=== PATIENT | male | born 1950 | race Caucasian/White ===

== ENCOUNTER 2017-04-27 13:16 | Emergency (ER) | payer MEDICARE, BC ==
[~2017-04-27] VITALS: Ht 165.1 cm; Wt 135.2 kg
--- NOTE | ~2017-04-27 | EKG ---
PATIENT: JOHN CHILD UNIT #: [id number] Ventricular Rate: 87 BPM Atrial Rate: 87 BPM P-R Interval: 222 ms QRS Duration: 98 ms Q-T Interval: 360 ms QTC Calculation(Bezet): 433 ms P [place]: 35 degrees Calculated R [place]: -21 degrees Calculated T [place]: 33 degrees Diagnosis Line: Sinus rhythm with 1st degree A-V block Diagnosis Line: Low voltage QRS Diagnosis Line: Borderline ECG Diagnosis Line: When compared with ECG of 13-JUL-2013 10:39, Diagnosis Line: WI interval has increased Diagnosis Line: Confirmed by GONZALO TORRES MD ([id number]) on 04/28/2017 Diagnosis Line: 10:22:27 PM INTERPRETING MD: MELISSA AGUILERA
--- NOTE | ~2017-04-27 | CT71 ---
[facility] A Service [facility] RADIOLOGY TEXT RESULTS PATIENT: JOHN CHILD LOCATION: [facility]ED[facility] : 54 UNIT #: [id number] AGE: [address]: ARIELLE RODRIGUEZ MD SEX: M ORDER DR: [id number] [facility] [address] [place], [place] [address] [id number] MR#: [id number] #: [id number] NAME: JOHN CHILD. : 1950 SEX: M STUDY DATE/TIME: 04/27/2017 15:16 UNIT: CEDOF ROOM: [id number] STUDY DESCRIPTION: CT Head Wo Contrast Attending Physician: Arielle Rodriguez M.D. Ordering Physician: Ed Doctor [id number] [facility] Primary Care Physician: Luis Hermosillo M.D. MEDICAL IMAGING REPORT This report is preliminary unless electronic signature is present EXAM CT head without contrast, 04/27/17 COMPARISON STUDIES None. HISTORY Vertigo for a week. Worse with movement. TECHNIQUE This CT exam was performed with one or more of the following radiation dose reduction techniques: automatic exposure control, adjustment of mA and/or kV according to patient size, and iterative reconstruction. FINDINGS CT of the head was obtained without contrast in the axial plane as per the protocol. Motion artifact limits evaluation. No acute intracranial hemorrhage, hydrocephalous or midline shift. Paranasal sinuses, mastoid air cells are unremarkable. Status post bilateral cataract surgery. Orbits and the ocular structures do not demonstrate any significant abnormality. IMPRESSION No demonstrable acute intracranial abnormality. Dictated by... Johnathon Perdomo M.D. THIS IS AN ELECTRONICALLY VERIFIED REPORT Johnathon Perdomo M.D. at 04/27/2017 9:32 PM CPR/ea [facility] A Service [facility] RADIOLOGY TEXT RESULTS PATIENT: JOHN CHILD LOCATION: CEDOF : 54 UNIT #: [id number] AGE: [address]: ARIELLE RODRIGUEZ MD SEX: M ORDER DR: TD: 04/27/2017 19:10 JOB #: [id number] MEDICAL IMAGING REPORT Page 1 of 1 COPY
[~2017-04-27 13:16] MED LIST: ASPIRIN325 M1 PO; ATENOLOL PO; CALCIUM500 MG PO; FISH OIL 1,0001 CAP PO; GLUCOSAMIN-CHO1 EACH PO; GLUCOTROL10 MG PO; HUMULIN 70100 UNIT/1 SUBQ; MEVACOR40 MG PO; NIACIN500 M2 PO; SODIUM BICARBO PO; ZYLOPRIM100 MG PO
[2017-04-27 14:46] LABS: POC - TROPONIN <0.05 ng/mL (<=0.05)
[2017-04-27 14:56] LABS: BASOPHIL% 0.6 % (0-2.5); EOSINOPHIL# 0.1 X10e3 (0-0.7); EOSINOPHIL% 1.4 % (0.0-7.0); HEMATOCRIT 43.3 % (38.0-50.0); HEMOGLOBIN 14.4 gm/dL (13.0-16.0); LYMPHOCYTE# 1.1 X10e3 (1.0-3.5); LYMPHOCYTE% 14.3 % (17.0-45.0); MEAN CELL VOLUME 92.1 FL (83-96); MEAN CORPUSCULAR HEMOGLOBIN 30.7 PG (28-34); MEAN CORPUSCULAR HGB CONC 33.3 g/dL (30-36); MEAN PLATELET VOLUME 9.8 FL (6.5-11.5); MONOCYTE# 0.5 X10e3 (0-1.0); MONOCYTE% 6.7 % (3.0-12.0); NEUTROPHIL# 5.9 X10e3 (1.5-7.1); PLATELET COUNT 132 X10e3 (140-420); RED CELL DISTRIBUTION WIDTH 14.4 % (11.0-15.5); WHITE BLOOD COUNT 7.7 X10e3 (4.0-10.5)
[2017-04-27 15:14] LABS: BUN/CREATININE RATIO 6.79; CALCIUM SERUM 9.3 mg/dL (8.4-10.2); CREATININE SERUM 10.6 mg/dL (0.6-1.4); GLOM FILT RATE Estimated 4.6 mL/min (>60)
[2017-04-27 15:16] LABS: POTASSIUM 6.6 mmol/L (3.5-5.1)
[2017-04-27 15:24] LABS: DIFF IND NO
[2017-04-27] MEDS ORDERED: PATIENT'S PHARMACY (16:20)
[2017-04-27] MEDS ORDERED: VOLTAREN75 MG PO (16:20)
[2017-04-27] MEDS ORDERED: LIPITOR20 MG PO (16:21)
[2017-04-27] MEDS ORDERED: SENSIPAR30 M1 PO (16:21)
[2017-04-27] MEDS ORDERED: ZYLOPRIM100 MG PO (16:21)
[2017-04-27] MEDS ORDERED: RENAL-VITE TAB0.8 MG PO (16:28)
[2017-04-27] MEDS ORDERED: CALCIUM500 M1 PO (16:28)
[2017-04-27] MEDS ORDERED: NOVOLIN 70100 UNITS/ SUBQ (16:28)
[2017-04-27] MEDS ORDERED: GLUCOSAMINE &1 EAC1 PO (16:29)
[2017-04-27] MEDS ORDERED: TASPRIN325 MG PO (16:30)
[2017-04-27] MEDS ORDERED: SODIUM BIC50 MEQ/50 PO (16:31)
== END 2017-04-27 22:30 | disposition home or self-care (01) ==
LOC: CED 13:16 → CEDOF 18:08 → CED 22:30
PROVIDERS: Emergency Medicine
DX: E87.5 Hyperkalemia (principal); I12.0 Hypertensive chronic kidney disease with stage 5 chronic kidney disease or end stage renal disease; E11.22 Type 2 diabetes mellitus with diabetic chronic kidney disease; N18.6 End stage renal disease; N17.9 Acute kidney failure, unspecified; E78.5 Hyperlipidemia, unspecified
CPT/HCPCS: 36415; 70450; 80048; 82553; 82947; 84484; 85025; 93005; 96374; 99285; G0257